=== PATIENT | female | born 1980 | race Caucasian/White ===

== ENCOUNTER 2023-06-14 07:07 | Emergency (ER) | payer SELFPAY ==
[~2023-06-14] VITALS: Ht 154.9 cm; Wt 57.0 kg
[2023-06-14 07:12] VITALS: BP 117/97; PULSE 87; RESP 16; TEMP 98.6; O2SAT 100
== END 2023-06-14 09:14 | disposition left against medical advice (07) ==
LOC: ER 07:08
DX: Z11.3 Encounter for screening for infections with a predominantly sexual mode of transmission (principal); Z53.21 Procedure and treatment not carried out due to patient leaving prior to being seen by health care provider
CPT/HCPCS: 99281